=== PATIENT | male | born 1985 ===

== ENCOUNTER → 2021-05-15 | Outpatient (REF) ==
--- NOTE | 2021-05-15 12:12 | REP ---
INDICATION: PIN/SOB COMPARISON: None TECHNIQUE: AP, lateral, and sunrise view each knee FINDINGS: Bilaterally: The compartments are symmetric and well maintained. There is no fracture, dislocation, or subluxation. There is no destructive osseous lesion. IMPRESSION: Within normal limits bilaterally <Electronically signed by Shon Rajput > 05/15/21 0937
--- NOTE | 2021-05-16 05:58 | REP ---
INDICATION: PIN/SOB COMPARISON: None. TECHNIQUE: PA and lateral. FINDINGS: The mediastinum and cardiac silhouette are normal. The lung morley are clear and without acute consolidation, effusion, or pneumothorax. The skeletal structures are intact and normal. IMPRESSION: No acute cardiopulmonary process. <Electronically signed by Deonte Delgado > 05/16/21 0550
--- NOTE | 2021-05-16 05:59 | REP ---
INDICATION: PIN/SOB COMPARISON: None. TECHNIQUE: AP, lateral, coned-down views of the lumbar spine. FINDINGS: Three views of the lumbosacral spine demonstrate satisfactory alignment and lordosis without acute fracture / compression injury or subluxation. Very minimal disc space narrowing at T12-L1, L1-2 and L5-S1 suggested. IMPRESSION: 1. No acute fracture / compression injury or subluxation. 2. Minimal disc space narrowing at multiple levels. No further significant degenerative changes are identified. <Electronically signed by Deonte Delgado > 05/16/21 [id number]
== END ==
LOC: M PLAIMG 11:14
PROVIDERS: ATTEND Internal Medicine
DX: M54.9 Dorsalgia, unspecified (principal); R06.02 Shortness of breath